=== PATIENT | female | born 1955 | race Two or more races ===

== ENCOUNTER 2019-10-14 19:29 | Emergency (ER) | payer MEDICAID ==
[~2019-10-14] VITALS: Ht 165.1 cm; Wt 65.8 kg
[~2019-10-14 19:29] MED LIST: AMLO5TAB4 PO; ASPI-495 PO; ATOR10TA PO; BENA20TA78 PO; CINA60TA PO; HYDR-4076 PO; LABE100T25 PO; QUET25TA PO; SEVE800T7 PO
--- NOTE | 2019-10-14 20:00 | NUR ---
PATIENT 63 YEAR OLD FEMALE. PATIENT WENT TO THE DENTIST TO GET TOOTH WORK DONE. PATIENT STATE THAT SHE HAS BEEN BLEEDING FROM THE SITE X4 DAYS. PATIENT A/O X4 PATIENT IS AMBULATORY. NO SOB. NO ACUTE RESPIRATROY DISTRESS. BED LOCK AND LOWEST POSITION 2 X RAILS UP FAMILY AT BED SIDE.
--- NOTE | 2019-10-14 20:00 | NUR ---
DR GROSS SAW PATIENT.
[2019-10-14 20:53] LABS: BASOPHILS # (AUTO) 0.1 /CMM (0.0-0.2); BASOPHILS % (AUTO) 1.5 % (0.0-2.0); EOSINOPHILS % (AUTO) 3.8 % (0.0-6.0); HEMATOCRIT 30 % (33-45); HEMOGLOBIN 9.9 g/dL (11.5-14.8); LYMPHOCYTES # (AUTO) 1.5 /CMM (0.8-4.8); LYMPHOCYTES % (AUTO) 17.1 % (20.0-44.0); MEAN CORPUSCULAR HGB CONC 33 g/dl (31.0-36.0); MEAN CORPUSCULAR VOLUME 91 fL (82-100); MONOCYTES # (AUTO) 0.5 /CMM (0.1-1.30); MONOCYTES % (AUTO) 5.8 % (2.0-12.0); NEUTROPHILS # (AUTO) 6.5 /CMM (1.8-8.9); NEUTROPHILS % (AUTO) 71.8 % (43.0-81.0); PLATELET COUNT (AUTO) 207 /CMM (150-450); RED BLOOD CELL COUNT(AUTO) 3.32 MIL/uL (4.0-5.2)
[2019-10-14 21:00] LABS: POTASSIUM 4.1 mmol/L (3.5-5.1)
[2019-10-14 21:08] LABS: CREATININE 8.5 mg/dL (0.6-1.3)
[2019-10-14] MEDS ORDERED: TRANEXAMIC ACID 1,000 MG/10 ML VIAL ONE (21:20)
[2019-10-14] MEDS ORDERED: TRANEXAMIC ACID 1,000 MG/10 ML VIAL IR ONE (21:30)
[2019-10-14] MEDS ORDERED: SILVER NITRATE APPLICATOR 1 EA BOX ONE (21:33)
--- NOTE | 2019-10-14 22:37 | NUR ---
PT REC'D EXTRA GAUZE TO USE AT HOME. Patient discharged to home in stable condition. Written and verbal after care instructions given. Patient AND HER GRAND DAUGHTER verbalizes understanding of instruction. PT'S VSS. PT AMBULATED OUT WITH A STEADY GAIT.
[2019-10-14 22:38] VITALS: BP 125/72
--- NOTE | 2019-10-14 22:38 | NUR ---
PT HAS HD IN THE AM. PT WILL F/U WITH DENTIST AFTERWARDS.
[2019-12-29] MEDS ORDERED: ASPI-1152 PO (07:09)
== END 2019-10-14 22:39 | disposition home or self-care (01) ==
LOC: ER 19:37 → MERGE 19:37 → ER 22:39
DX: K91.841 Postprocedural hemorrhage of a digestive system organ or structure following other procedure (principal); I12.0 Hypertensive chronic kidney disease with stage 5 chronic kidney disease or end stage renal disease; N18.6 End stage renal disease; D63.1 Anemia in chronic kidney disease; Z99.2 Dependence on renal dialysis; Z60.2 Problems related to living alone
CPT/HCPCS: 36415; 80048-TC; 85025-TC; 85730-TC

== ENCOUNTER 2019-12-29 04:58 | Inpatient (IN) | payer MEDICAID ==
[~2019-12-29] VITALS: Ht 154.9 cm; Wt 52.6 kg
--- NOTE | 2019-12-29 05:09 | NUR ---
DION [id number]
--- NOTE | 2019-12-29 05:15 | NUR ---
PT IS PRESENTED TO THE ER FOR C/O WORSENING SOB X 1 DAY. SATTING 95% ON R/A. DENIED COUGH. A, OX3, AMBULATORY TO BED 7, W/ PMH OF ESRD ON HD 3 TIMES A WK ON S. HAD HER LAST HD ON SATURDAY AND DUE TODAY. LFA HD SHUNT INTACT. PT WAS PLACED ON A MONITOR , PT WAS PLACED ON O2 AT 2LPM VIA NC AND O2 SAT INCREASED TO 100%. DENIED CP. + C/O GENERALIZED BODY ACHE. WILL CONT TO NABIL ,
[2019-12-29 05:22] LABS: BASOPHILS # (AUTO) 0.1 /CMM (0.0-0.2); BASOPHILS % (AUTO) 1.3 % (0.0-2.0); EOSINOPHILS % (AUTO) 1.8 % (0.0-6.0); HEMATOCRIT 28 % (33-45); HEMOGLOBIN 9.1 g/dL (11.5-14.8); LYMPHOCYTES # (AUTO) 1.2 /CMM (0.8-4.8); LYMPHOCYTES % (AUTO) 11.4 % (20.0-44.0); MEAN CORPUSCULAR HGB CONC 33 g/dl (31.0-36.0); MEAN CORPUSCULAR VOLUME 88 fL (82-100); MONOCYTES # (AUTO) 0.4 /CMM (0.1-1.30); MONOCYTES % (AUTO) 4.3 % (2.0-12.0); NEUTROPHILS # (AUTO) 8.5 /CMM (1.8-8.9); NEUTROPHILS % (AUTO) 81.2 % (43.0-81.0); PLATELET COUNT (AUTO) 166 /CMM (150-450); RED BLOOD CELL COUNT(AUTO) 3.14 MIL/uL (4.0-5.2); WHITE BLOOD COUNT (AUTO) 10.5 K/uL (4.3-11.0)
[2019-12-29 05:29] LABS: CALCIUM, SERUM 9.3 mg/dL (8.5-10.1)
[2019-12-29 05:37] LABS: D-DIMER 1.79 mg/L(FEU (0.17-0.50)
[2019-12-29] MEDS ORDERED: hydrALAZINE HCL IV 20 MG VIAL ONE ×2 (05:56→06:36)
[2019-12-29] MEDS ORDERED: hydrALAZINE HCL IV 20 MG VIAL IV ONE (06:00)
--- NOTE | 2019-12-29 06:23 | NUR ---
TELE BED 117-2
[2019-12-29] MEDS ORDERED: PIPERACILLIN /TAZOBACTAM 3.375 G VIAL IV ONE (06:25)
[2019-12-29] MEDS ORDERED: PIPERACILLIN /TAZOBACTAM 3.375 G in IV D5W 50 ML IV ONE (06:30)
[2019-12-29] MEDS ORDERED: VANCOMYCIN 1 GM in IV D5W 250 ML IV ONE (06:30)
[2019-12-29] MEDS ORDERED: MORPHINE SULFATE INJ 2 MG/ML DISP.SYRIN IV PRN (06:30)
[2019-12-29] MEDS ORDERED: HYDROCODONE/APAP 5/325MG TABLET PO PRN (06:30)
[2019-12-29] MEDS ORDERED: ZOLPIDEM TARTRATE 5 MG TABLET PO PRN (06:30)
[2019-12-29] MEDS ORDERED: hydrALAZINE HCL IV 20 MG VIAL IV PRN (06:30)
--- NOTE | 2019-12-29 06:41 | NUR ---
BLOOD CULTURES AND HAYS VIRUS SWAB COLLECTED AND SENT TO THE LAB.
[2019-12-29] MEDS ORDERED: VANCOMYCIN 1 GM VIAL ONE (06:51)
[2019-12-29] MEDS ORDERED: AMLO5TAB9 PO (07:09)
[2019-12-29] MEDS ORDERED: OMEP20TA5 PO (07:09)
[2019-12-29] MEDS ORDERED: CINA90TA4 PO (07:09)
[2019-12-29] MEDS ORDERED: FOLI0.8C PO (07:09)
[2019-12-29] MEDS ORDERED: SEVE800T28 PO (07:09)
[2019-12-29] MEDS ORDERED: LABE200T5 PO (07:09)
[2019-12-29] MEDS ORDERED: ASPI-1420 PO (07:09)
[2019-12-29] MEDS ORDERED: FEE PK DOSING 1 MIN EA MC ONE (07:25)
--- NOTE | 2019-12-29 07:57 | NUR ---
REPORT GIVEN TO SUNDAY VASQUEZ
--- NOTE | 2019-12-29 08:24 | NUR ---
PATIENT TRANSFERRED TO ROOM 117-2 VIA ACLS PROTOCOL. NO DISTRESS NOTED. ENDORSED TO SUNDAY VASQUEZ.
--- NOTE | 2019-12-29 08:25 | NUR ---
CONTACT LENS INSPECTOR NOTES RECEIVED PT FROM E.R. STAFF, AWAKE, ALERT AND ORIENTED, DENIES PAIN, NO SHORTNESS OF BREATH AT THIS TIME, NO COMPLAINT OF PAIN, ASSISTED TO BED, MADE COMFORTABLE, ROOM SET UP ORIENTATION PROVIDED TO PT, VERBALIZED UNDERSTANDING, CALL LIGHT WITHIN REACH, ADMISSION ORDERS RECEIVED FROM DR. GALVAN, PT SEEN AND EXAMINED BY DR. CULVER, NEEDS ATTENDED.
[2019-12-29 08:30] VITALS: BP 161/73
[2019-12-29 08:46] LABS: ALBUMIN 3.6 g/dL (3.4-5.0); BILIRUBIN,DIRECT 0.2 mg/dL (0.0-0.2); BILIRUBIN,TOTAL 0.6 mg/dL (0.2-1.0); MAGNESIUM 2.1 mg/dL (1.8-2.4); PHOSPHORUS 3.5 mg/dL (2.5-4.9); TOTAL PROTEIN, SERUM 7.2 g/dL (6.4-8.2)
[2019-12-29 08:54] LABS: C-REACTIVE PROTEIN 0.2 mg/dL (0.0-0.9); THYROID STIMULATING HORMONE 2.399 uIU/mL (0.358-3.74)
[2019-12-29] MEDS: HEPARIN SODIUM, PORCINE 5000 UNITS/1 ML VIAL SQ SCH ×2 (09:28→20:35)
[2019-12-29] MEDS ORDERED: PIPERACILLIN /TAZOBACTAM 3.375 G in IV D5W 50 ML IV SCH (12:00)
[2019-12-29 12:07] LABS: IRON, SERUM 78 ug/dl (50-175); TOTAL IRON BINDING CAPACITY 200 ug/dl (250-450)
--- NOTE | 2019-12-29 13:00 | NUR ---
TAX ACCOUNTING MANAGER NOTES PT IN BED, AWAKE, ALERT AND ORIENTED, COMPLETED DIALYSIS, TOLERATED WELL, STATED THAT SHE FEELS BETTER AFTER HD, NO SOB NOTED, PT DOES NOT WANT ANY SKIN CHECK AT THIS TIME SHE IS RESTING BUT SAYS SHE DOES NOT HAVE ANY SKIN ISSUES, NEEDS ATTENDED, CALL LIGHT WITHIN REACH.
[2019-12-29] MEDS: hydrALAZINE HCL IV 20 MG VIAL IV PRN ×3 (13:37→21:02)
[2019-12-29] MEDS: PIPERACILLIN /TAZOBACTAM 2.25 G in IV D5W 50 ML IV SCH ×2 (13:37→20:33)
[2019-12-29] MEDS: ACETAMINOPHEN 325 MG TABLET PO PRN (16:57)
[2019-12-29 17:19] VITALS: BP 179/82
[2019-12-29 18:00] VITALS: BP 157/71
--- NOTE | 2019-12-29 18:30 | NUR ---
BRIDGE CONTRACTOR NOTES PT IN BED, AWAKE, ALERT AND ORIENTED, NO COMPLAINT AT HIS TIME, BREAHING PATTERN NORMAL, PM MEDS GIVEN ORDERED, CALL LIGHT WITHIN REACH, ALL NEEDS ATTENDED.
[2019-12-29] MEDS: VANCOMYCIN 500 MG in IV D5W 100 ML IV PRN (18:49)
--- NOTE | 2019-12-29 19:40 | NUR ---
RN NOTE PT IN BED, A/O X 4 ON MONITOR CURRENTLY SR, NO COMPLAINT OF PAIN AT THIS TIME. PT IN NO RESPITORY DISTRESS, ON O2 2L/MIN VIA NC. IV SITE TO RAC PATENT AND INTACT FLUSHING WELL. BED IN LOWEST POSITION, SAFETY MEASURES IN PLACE, CALL LIGHT WITHIN REACH WILL CONT. TO MONITOR PT.
[2019-12-29 20:00] VITALS: BP 184/93
--- NOTE | 2019-12-29 22:00 | NUR ---
RN NOTE RECHECKED BP 154/89 PULSE 74.
[2019-12-30] VITALS (8 sets, daily range): BP systolic 137–200; BP diastolic 70–100
[2019-12-30] MEDS: ACETAMINOPHEN 325 MG TABLET PO PRN ×2 (00:17→05:02)
--- NOTE | 2019-12-30 00:17 | NUR ---
RN NOTE PT REQUESTING TYLENOL C/O HEAD PAIN 10/19. TYLENOL GIVEN TO PT.
[2019-12-30] MEDS: hydrALAZINE HCL IV 20 MG VIAL IV PRN ×2 (04:12→18:40)
[2019-12-30] MEDS: PIPERACILLIN /TAZOBACTAM 2.25 G in IV D5W 50 ML IV SCH ×3 (04:47→21:13)
--- NOTE | 2019-12-30 04:58 | NUR ---
RN NOTE RECHECK BP 159/85 PULSE 79. PT REQUESTING TYLENOL C/O PAIN 09/21.
[2019-12-30 06:29] LABS: BASOPHILS # (AUTO) 0.1 /CMM (0.0-0.2); BASOPHILS % (AUTO) 1.5 % (0.0-2.0); EOSINOPHILS % (AUTO) 2.5 % (0.0-6.0); HEMATOCRIT 27 % (33-45); LYMPHOCYTES # (AUTO) 1.5 /CMM (0.8-4.8); LYMPHOCYTES % (AUTO) 15.9 % (20.0-44.0); MEAN CORPUSCULAR HGB CONC 34 g/dl (31.0-36.0); MEAN CORPUSCULAR VOLUME 88 fL (82-100); MONOCYTES # (AUTO) 0.8 /CMM (0.1-1.30); MONOCYTES % (AUTO) 8.7 % (2.0-12.0); NEUTROPHILS # (AUTO) 6.6 /CMM (1.8-8.9); NEUTROPHILS % (AUTO) 71.4 % (43.0-81.0); PLATELET COUNT (AUTO) 169 /CMM (150-450); RED BLOOD CELL COUNT(AUTO) 3.02 MIL/uL (4.0-5.2); WHITE BLOOD COUNT (AUTO) 9.3 K/uL (4.3-11.0)
[2019-12-30 06:39] LABS: CALCIUM, SERUM 9.4 mg/dL (8.5-10.1); CREATININE 8.3 mg/dL (0.6-1.3); POTASSIUM 3.9 mmol/L (3.5-5.1)
--- NOTE | 2019-12-30 06:56 | NUR ---
RN CLOSING NOTE PT IN BED, ASLEEP, CURRENTLY SR, PT IN NO RESPIRATORY DISTRESS, ON O2 2L/MIN VIA NC TOLERATED WELL. IV SITE TO RAC PATENT AND INTACT FLUSHING WELL. BED IN LOWEST POSITION, SAFETY MEASURES IN PLACE, CALL LIGHT WITHIN REACH, ENDORSED COVID NEGATIVE RESULTS. ENDORSED FOR JOLLY
[2019-12-30] MEDS: HEPARIN SODIUM, PORCINE 5000 UNITS/1 ML VIAL SQ SCH ×2 (09:00→20:10)
[2019-12-30] MEDS ORDERED: hydrALAZINE HCL 50 MG TABLET PO SCH (09:30)
[2019-12-30] MEDS ORDERED: ISOSORBIDE DINITRATE (20MG) 20 MG TABLET PO SCH (09:30)
[2019-12-30] MEDS: FOLIC ACID 1 MG TABLET PO SCH (09:30)
[2019-12-30] MEDS: PANTOPRAZOLE 40 MG TABLET.DR PO SCH (09:30)
[2019-12-30] MEDS: AMLODIPINE BESYLATE 5 MG TABLET PO SCH (09:30)
[2019-12-30] MEDS: CINACALCET HCL 30 MG TABLET PO SCH (10:00)
[2019-12-30] MEDS: LABETALOL HCL (100MG) 100 MG TABLET PO SCH ×3 (10:00→18:42)
[2019-12-30] MEDS: SEVELAMER CARBONATE 800 MG TABLET PO SCH ×2 (13:16→17:37)
--- NOTE | 2019-12-30 13:31 | NUR ---
NURSING SUP/FAIZAN MADE AWARE PATIENT HAS ORDER TO TRANSFER TO [facility] FOR BED.
--- NOTE | 2019-12-30 14:30 | NUR ---
RN NOTE Received patient from [facility]IO. Bedside report. Patient is A/O x4, showing no signs of acute distress or SOB, stable on RA. Patient is ambulatory with BRP. BP 160/70, HR 83, RR 18, O2 98% on RA. IV line is clean and intact. Bed is in lowest position, side rails x3 in upright position, call light is within reach and patient is aware of how to call for assistance when needed. Will continue with plan of care.
--- NOTE | 2019-12-30 17:38 | NUR ---
RN NOTE Patient is going to receive dialysis. Per manager loan to hold Labetalol.
--- NOTE | 2019-12-30 18:40 | NUR ---
RN NOTE Patient was receiving dialysis and hedis manager Frank stated that patient's BP is not resolving, BP is 200/100 HR 76. Patient remains alert, with no signs of acute distress, resting in bed. IV Hydralazine given 10mg and scheduled Labetalol given. notified. Will continue to monitor.
--- NOTE | 2019-12-30 19:30 | NUR ---
RN CLOSING NOTE Patient is resting in bed, A/O x4 showing no signs of acute distress or SOB, saturating >95% on 2L NC, currently receiving hemodialysis. BP 184/90 HR 73. All patient needs met, all due medications given, patient kept clean and dry throughout shift. Bed is in lowest position, side rails x3 in upright position, call light is within reach and patient is aware of how to call for assistance when needed. Bedside report given to police shift commander.
--- NOTE | 2019-12-30 19:31 | NUR ---
RN OPENING NOTE PATIENT IN BED RECIEVING HD IN NO SIGNS OF ACUTE DISTRESS. C/O NAUSEABED IN LOW LOCKED POSITIONSRX3 HD NURSE WILIAM AT THE BEDSIDE. PER REPORT BP HAS BEEN HIGH THROUGHOUT ADMISSION. CALL LIGHT WITHIN REACH. WILL CONT TO MONITOR. Addendum: 12/31/19 at 0028 by JULIO CHOU RN REPORT RECIEVED FROM TANNER VASQUEZ.
--- NOTE | 2019-12-30 20:16 | NUR ---
HD COMPLETED PER WILIAM EVENT LIGHTING SPECIALIST. 2 LITERS TAKEN OFF SBP STILL HIGH IN 180'S PATIENT C/O NAUSEA.
[2019-12-30] MEDS: ONDANSETRON HCL/PF 4 MG/2 ML VIAL IVP PRN (20:20)
[2019-12-30] MEDS ORDERED: Z GUARD REMEDY 4 OZ OINT TP SCH (21:00)
[2019-12-30] MEDS ORDERED: TRIAMCINOLONE ACETONIDE 0.1% CR 15 GM TUBE TP SCH (21:00)
[2019-12-30] MEDS ORDERED: NYSTATIN CREAM 15 GM TUBE TP SCH (21:00)
[2019-12-30] MEDS ORDERED: HYDROGEL DRESSING 90 GM TUBE TP SCH ×2 (21:00)
--- NOTE | 2019-12-30 21:01 | NUR ---
PHARMACY CALLED AND STATE HOLD VANCOMYCIN TODAY PATIENT VANCO TROUGH WAS 22. REQUEST NEW TROUGH BE ORDERED NEXT TIME PATIENT HAS DIALYSIS.
[2019-12-31] VITALS: BP 167/78
[2019-12-31] MEDS: VANCOMYCIN 500 MG in IV D5W 100 ML IV PRN (00:20)
--- NOTE | 2019-12-31 00:30 | NUR ---
HYDRALAZINE ADMINISTED PATIENT BP STILL HIGH AT 167/78 HR 76 WILL CONT TO MONITOR.
[2019-12-31] MEDS: hydrALAZINE HCL IV 20 MG VIAL IV PRN ×2 (00:32→09:51)
[2019-12-31] MEDS: ACETAMINOPHEN 325 MG TABLET PO PRN (00:35)
--- NOTE | 2019-12-31 00:35 | NUR ---
TYELENOL ADMINISTERD FOR ARCHULETA PER PATIENT REQUEST RATED 3/10.
[2019-12-31] MEDS: PIPERACILLIN /TAZOBACTAM 2.25 G in IV D5W 50 ML IV SCH ×2 (05:20→13:50)
[2019-12-31 05:27] VITALS: BP 155/71
[2019-12-31 06:26] LABS: BASOPHILS # (AUTO) 0.2 /CMM (0.0-0.2); EOSINOPHILS % (AUTO) 4.1 % (0.0-6.0); HEMATOCRIT 27 % (33-45); HEMOGLOBIN 8.9 g/dL (11.5-14.8); LYMPHOCYTES # (AUTO) 2.2 /CMM (0.8-4.8); LYMPHOCYTES % (AUTO) 23.7 % (20.0-44.0); MEAN CORPUSCULAR HGB CONC 33 g/dl (31.0-36.0); MEAN CORPUSCULAR VOLUME 88 fL (82-100); MONOCYTES # (AUTO) 0.8 /CMM (0.1-1.30); MONOCYTES % (AUTO) 8.9 % (2.0-12.0); NEUTROPHILS # (AUTO) 5.8 /CMM (1.8-8.9); NEUTROPHILS % (AUTO) 61.3 % (43.0-81.0); PLATELET COUNT (AUTO) 185 /CMM (150-450); RED BLOOD CELL COUNT(AUTO) 3.06 MIL/uL (4.0-5.2); WHITE BLOOD COUNT (AUTO) 9.4 K/uL (4.3-11.0)
[2019-12-31 06:28] LABS: CALCIUM, SERUM 9.4 mg/dL (8.5-10.1); CREATININE 6.4 mg/dL (0.6-1.3); POTASSIUM 3.9 mmol/L (3.5-5.1)
--- NOTE | 2019-12-31 06:40 | NUR ---
RN PM CLOSING NOTE PATIENT IN BED SEEN WITH EYES CLOSED. NO SIGNS OF ACUTE DISTRESS. BED IN LOW LOCKED POSITION SRX3. BP CHECKED THIS MORNING AND IS SBP IS LESS THEN 160. BP HAS BEEN HIGH THROUGHOUT ADMISSION. CALL LIGHT WITHIN REACH.
--- NOTE | 2019-12-31 07:15 | NUR ---
MS RN NOTES RECEIVED PATIENT AMBULATING IN ROOM. ALERT AND ORIENTED X4. NO SOB. DENIES ANY C/O PAIN NOR DISCOMFORT. RIGHT AC # 18 SL INTACT AND PATENT. LEFT FOREARM AV FISTULA WITH + BRUIT/THRILL. AMBULATORY WITH STEADY GAIT. BED IN LOWEST POSITION, LOCKED. CALL LIGHT WITHIN REACH. ABLE TO VERBALIZE NEEDS.
[2019-12-31] MEDS: PANTOPRAZOLE 40 MG TABLET.DR PO SCH (07:47)
[2019-12-31 08:00] VITALS: BP 175/83
[2019-12-31] MEDS ORDERED: ASPIRIN EC 81 MG TABLET.DR PO SCH (09:00)
[2019-12-31] MEDS: FOLIC ACID 1 MG TABLET PO SCH (09:19)
[2019-12-31] MEDS: SEVELAMER CARBONATE 800 MG TABLET PO SCH ×3 (09:19→17:11)
[2019-12-31] MEDS: CINACALCET HCL 30 MG TABLET PO SCH (09:19)
[2019-12-31] MEDS: HEPARIN SODIUM, PORCINE 5000 UNITS/1 ML VIAL SQ SCH (09:21)
[2019-12-31] MEDS: LABETALOL HCL (100MG) 100 MG TABLET PO SCH ×2 (09:29→17:11)
[2019-12-31] MEDS: AMLODIPINE BESYLATE 5 MG TABLET PO SCH (09:30)
[2019-12-31] MEDS: ONDANSETRON HCL/PF 4 MG/2 ML VIAL IVP PRN (09:49)
[2019-12-31] MEDS: hydrALAZINE HCL 50 MG TABLET PO SCH ×3 (10:19→17:12)
[2019-12-31] MEDS: ISOSORBIDE DINITRATE (20MG) 20 MG TABLET PO SCH ×2 (10:19→17:11)
[2019-12-31 17:12] VITALS: BP 139/77
--- NOTE | 2019-12-31 17:45 | NUR ---
MS RN NOTES PATIENT FOR DISCHARGE. DISCHARGE INSTRUCTIONS, EDUCATION AND PACKET GIVEN TO PATIENT AND VERBALIZES UNDERSTANDING. ALERT AND ORIENTED X4. NO SOB. DENIES ANY C/O PAIN NOR DISCOMFORT. IV ACCESS CATHETER REMOVED WITH CATHETER TIP INTACT WITH GAUZE DRESSING IN PLACE. LEFT FOREARM AV FISTULA WITH + BRUIT/THRILL. AMBULATORY WITH STEADY GAIT. ALL BELONGINGS ACCOUNTED FOR. PATIENT PICKED UP BY DAUGHTER VIA PRIVATE VEHICLE AND LEFT IN STABLE CONDITION.
== END 2019-12-31 17:45 | disposition home or self-care (01) | DRG 199 ==
LOC: ER 05:03 → TELE1 06:23 → MERGE 06:23 → MEDSG1 12-30 09:33 → MED 12-30 14:11
PROVIDERS: ADMIT Nurse Practitioner Acute Care; ATTEND Nurse Practitioner Acute Care
PROC: 5A1D70Z Performance of Urinary Filtration, Intermittent, Less than 6 Hours Per Day (ICD-10-PCS; principal; 2019-12-29)
DX: I16.0 Hypertensive urgency (principal); I50.31 Acute diastolic (congestive) heart failure; N18.6 End stage renal disease; N25.81 Secondary hyperparathyroidism of renal origin; I13.2 Hypertensive heart and chronic kidney disease with heart failure and with stage 5 chronic kidney disease, or end stage renal disease; Z99.2 Dependence on renal dialysis; D63.1 Anemia in chronic kidney disease; K21.9 Gastro-esophageal reflux disease without esophagitis
CPT/HCPCS: 36415; 71045-TC; 80048-TC; 80061-TC; 80076-TC; 80202-TC; 82550-TC; 83540-TC; 83605-TC; 83615-TC; 83735-TC; 83880; 84100-TC; 84443-TC; 84484-TC; 85025-TC; 85378-TC; 85385-TC; 85610-TC; 86140-TC; 86706; 87040-TC; 87081-TC; 87340; 90935-TC; 93307-TC; 97116-TC; 97530-TC; A6248; G0378; J0360; J1644; J2405; J2543; J3370; J7050; J7060; U0003-CS

== ENCOUNTER 2020-07-21 17:19 | Emergency (ER) | payer MEDICAID ==
[~2020-07-21] VITALS: Ht 165.1 cm; Wt 49.9 kg
[~2020-07-21 17:19] MED LIST changes: +AMLO-212 PO; -AMLO5TAB4 PO; +ASPI-1420 PO; -ASPI-495 PO; +CINA90TA4 PO; +FOLI0.8C PO; -LABE100T25 PO; +LABE200T5 PO; +OMEP20TA5 PO; +SEVE800T28 PO
--- NOTE | 2020-07-21 18:02 | NUR ---
FROM HOME C/O NAUSEA AND VOMITING X 1 WEEK, LACK OF APPETITE, TESTED NEGATIVE COVID 1 MONTH AGO, TO ER BED 11, HOOKED TO MONITOR, CHANGED TO HOSP GOWN, WARM BLANKET PROVIDED, PATIENT AAO x 4. DR PANG AT BEDSIDE
--- NOTE | 2020-07-21 19:28 | NUR ---
CALLED REGARDING COVID SWABS
[2020-07-21] MEDS ORDERED: IV NS 0.9% 500 ML IV ONE (19:30)
--- NOTE | 2020-07-21 19:45 | NUR ---
LINE ESTABLISHED RAC 20G, BLOOD COLLECTED, SENT TO LAB.
--- NOTE | 2020-07-21 19:45 | NUR ---
JADEID SWABBED, SENT TO LAB.
[2020-07-21 19:49] LABS: BASOPHILS # (AUTO) 0.2 /CMM (0.0-0.2); BASOPHILS % (AUTO) 3.5 % (0.0-2.0); EOSINOPHILS % (AUTO) 0.5 % (0.0-6.0); HEMATOCRIT 33 % (33-45); HEMOGLOBIN 10.9 g/dL (11.5-14.8); LYMPHOCYTES # (AUTO) 0.6 /CMM (0.8-4.8); LYMPHOCYTES % (AUTO) 11.1 % (20.0-44.0); MEAN CORPUSCULAR HGB CONC 33 g/dl (31.0-36.0); MEAN CORPUSCULAR VOLUME 94 fL (82-100); MONOCYTES # (AUTO) 0.7 /CMM (0.1-1.30); MONOCYTES % (AUTO) 11.5 % (2.0-12.0); NEUTROPHILS # (AUTO) 4.3 /CMM (1.8-8.9); NEUTROPHILS % (AUTO) 73.4 % (43.0-81.0); PLATELET COUNT (AUTO) 216 /CMM (150-450); RED BLOOD CELL COUNT(AUTO) 3.48 MIL/uL (4.0-5.2); WHITE BLOOD COUNT (AUTO) 5.8 K/uL (4.3-11.0)
[2020-07-21 19:59] LABS: CALCIUM, SERUM 10.1 mg/dL (8.5-10.1); CREATININE 4.9 mg/dL (0.6-1.3); POTASSIUM 4.2 mmol/L (3.5-5.1)
[2020-07-21 20:16] LABS: ALBUMIN 3.1 g/dL (3.4-5.0); BILIRUBIN,TOTAL 0.5 mg/dL (0.2-1.0); TOTAL PROTEIN, SERUM 8.1 g/dL (6.4-8.2)
--- NOTE | 2020-07-21 20:19 | NUR ---
DAUGHTER EASTON FOR UPDATES,
--- NOTE | 2020-07-21 20:30 | NUR ---
Call from Lab, Rapid covid positive
--- NOTE | 2020-07-21 21:21 | NUR ---
RESTING COMFORTABLY. VSS.
[2020-07-21 21:27] LABS: C-REACTIVE PROTEIN 11.4 mg/dL (0.0-0.9)
--- NOTE | 2020-07-21 21:36 | NUR ---
SPOKE TO MD REGARDING PT BEING HYPERTENSIVE. WILL PLACE ORDERS.
[2020-07-21] MEDS ORDERED: LABETALOL HCL (100MG) 100 MG TABLET PO ONE (22:00)
[2020-07-21] MEDS ORDERED: BENAZEPRIL HCL 10 MG TABLET PO ONE (22:00)
[2020-07-21] MEDS ORDERED: BENAZEPRIL HCL 10 MG TABLET ONE (22:10)
[2020-07-21] MEDS ORDERED: LABETALOL HCL (100MG) 100 MG TABLET ONE (22:11)
--- NOTE | 2020-07-21 22:29 | NUR ---
Patient discharged to home in stable condition. Written and verbal after care instructions given. Patient verbalizes understanding of instruction.IV removed. Catheter intact and site benign. Pressure and 4x4 applied to site. No bleeding noted.
[2020-07-21 22:30] VITALS: BP 196/92
== END 2020-07-21 22:30 | disposition home or self-care (01) ==
LOC: ER 17:21
DX: U07.1 COVID-19 (principal); I12.0 Hypertensive chronic kidney disease with stage 5 chronic kidney disease or end stage renal disease; N18.6 End stage renal disease; Z99.2 Dependence on renal dialysis; K21.9 Gastro-esophageal reflux disease without esophagitis; D64.9 Anemia, unspecified; Z79.82 Long term (current) use of aspirin; Z79.899 Other long term (current) drug therapy
CPT/HCPCS: 36415; 71045; 80053; 82550; 82728; 83605; 83615; 84145; 85025; 85730; 86140; 87040 ×2; 87081; 87426; 93005; 99285; C9803; J7040; U0003

== ENCOUNTER 2020-09-20 00:04 | Emergency (ER) | payer MEDICAID ==
[~2020-09-20] VITALS: Ht 154.9 cm; Wt 54.9 kg
[~2020-09-20 00:04] MED LIST changes: -CINA60TA PO; -HYDR-4076 PO; -QUET25TA PO; -SEVE800T7 PO
--- NOTE | 2020-09-20 00:10 | NUR ---
PT BIBSELF C/O NOSEBLEED SINCE 1999. PT AAOX4 BREATHING EVENLY AND UNLABORED. PT SKIN IS WARM, DRY, AND INTACT. PT ATTACHED TO MONITOR AND POX. GIVEN BLANKET AND CALL LIGHT WITHIN REACH. WILL CONTINUE TO MONITOR.
[2020-09-20] MEDS ORDERED: ONDANSETRON HCL/PF 4 MG/2 ML VIAL IV ONE (01:00)
--- NOTE | 2020-09-20 01:00 | NUR ---
blood sample obtained and sent to lab
--- NOTE | 2020-09-20 01:00 | NUR ---
pt began vomitting up blood with clots. notifed. zofran ordered. 20g rt ac iv initiated. orders carried out
[2020-09-20] MEDS ORDERED: ONDANSETRON HCL/PF 4 MG/2 ML VIAL ONE (01:04)
[2020-09-20 01:19] LABS: BASOPHILS # (AUTO) 0.3 /CMM (0.0-0.2); BASOPHILS % (AUTO) 2.6 % (0.0-2.0); EOSINOPHILS % (AUTO) 4.2 % (0.0-6.0); HEMATOCRIT 27 % (33-45); HEMOGLOBIN 8.6 g/dL (11.5-14.8); LYMPHOCYTES # (AUTO) 1.3 /CMM (0.8-4.8); LYMPHOCYTES % (AUTO) 13.6 % (20.0-44.0); MEAN CORPUSCULAR HGB CONC 32 g/dl (31.0-36.0); MEAN CORPUSCULAR VOLUME 92 fL (82-100); MONOCYTES # (AUTO) 0.7 /CMM (0.1-1.30); MONOCYTES % (AUTO) 6.9 % (2.0-12.0); NEUTROPHILS # (AUTO) 7.2 /CMM (1.8-8.9); NEUTROPHILS % (AUTO) 72.7 % (43.0-81.0); PLATELET COUNT (AUTO) 212 /CMM (150-450); WHITE BLOOD COUNT (AUTO) 9.9 K/uL (4.3-11.0)
[2020-09-20] MEDS ORDERED: TRANEXAMIC ACID 1,000 MG/10 ML VIAL ONE (01:21)
[2020-09-20] MEDS ORDERED: TRANEXAMIC ACID 1,000 MG/10 ML VIAL IR ONE (01:30)
--- NOTE | 2020-09-20 02:24 | NUR ---
at bedside placing rhinorocket
[2020-09-20] MEDS ORDERED: AMOX-430 PO (02:27)
--- NOTE | 2020-09-20 03:00 | NUR ---
at bedside placing second rhinorocket in rt nostril
--- NOTE | 2020-09-20 03:40 | NUR ---
[place] [facility] [place]NA[place] FOR ENT SERVICES AT THIS TIME
--- NOTE | 2020-09-20 03:44 | NUR ---
SPOKE WITH JIMMY FROM [facility], NO BEDS AVAILABLE AT THIS TIME
--- NOTE | 2020-09-20 03:46 | NUR ---
SPOKE WITH TJ FROM [facility]. NO BEDS AVAILABLE AT THIS TIME
--- NOTE | 2020-09-20 03:47 | NUR ---
spoke to daughter and informed her of the transfer that we will be setting up for the pt to see an ENT
--- NOTE | 2020-09-20 03:48 | NUR ---
SPOKE WITH MYCHAL FROM [facility]. ALL SURROUNDING STRONG FACILITIES AT FULL CAPACITY AT THIS TIME
--- NOTE | 2020-09-20 03:51 | NUR ---
SPOKE WITH JACKIE FROM [facility]. NO ENT SERVICES AVAILABLE
--- NOTE | 2020-09-20 03:52 | NUR ---
SPOKE WITH STEFANIA FROM [facility], NO ENT SERVICES
--- NOTE | 2020-09-20 03:52 | NUR ---
called lab for covid swab
--- NOTE | 2020-09-20 03:57 | NUR ---
SPOKE WITH DASH FROM [facility], ALL FACILITIES AT CAPACITY AT THIS TIME
[2020-09-20] MEDS ORDERED: AMOX/CLAVULANATE 875 MG TABLET PO ONE (04:00)
--- NOTE | 2020-09-20 04:07 | NUR ---
SPOKE WITH KEITH FROM [facility], DR. HODGES NOW SPEAKING WITH [facility]AR[facility] MD REGARDING POSSIBLE TRANSFER AT THIS TIME.
[2020-09-20] MEDS ORDERED: AMOX/CLAVULANATE 875 MG TABLET ONE (04:15)
--- NOTE | 2020-09-20 04:23 | NUR ---
SPOKE WITH BRETT FROM [facility], FULL CAPACITY AT THIS TIME
[2020-09-20 04:24] LABS: CALCIUM, SERUM 9.7 mg/dL (8.5-10.1); POTASSIUM 5.4 mmol/L (3.5-5.1)
[2020-09-20 04:25] LABS: CREATININE 8.1 mg/dL (0.6-1.3)
--- NOTE | 2020-09-20 04:28 | NUR ---
COVID SWAB COLLECTED AMD SENT TO THE LAB
--- NOTE | 2020-09-20 04:36 | NUR ---
SPOKE WITH CLEMENT FROM [facility]. NO BEDS AVAILABLE AT THIS TIME
--- NOTE | 2020-09-20 04:44 | NUR ---
PT ACCEPTED TO [facility] MD: DR. TOUSSAINT NUMBER FOR REPORT: [phone]
--- NOTE | 2020-09-20 04:56 | NUR ---
called and gave report to CHRISTINA Dale for zuly
--- NOTE | 2020-09-20 04:58 | NUR ---
CALLED [facility] FOR TRANSPORTATION. WILL CALL BACK WITH ETA. RESERVATION #[id number]
--- NOTE | 2020-09-20 06:10 | NUR ---
[facility] [phone]
--- NOTE | 2020-09-20 06:20 | NUR ---
called daughter to notify her of the pt's transfer information. Left a message. awaiting a call back
--- NOTE | 2020-09-20 06:22 | NUR ---
called CHRISTINA Dale to update her on the ETA of the pt.
--- NOTE | 2020-09-20 07:13 | NUR ---
endorsed care to CHRISTINA Case for zuly
--- NOTE | 2020-09-20 07:59 | NUR ---
report given to [facility] crew for JOLLY
[2020-09-20 08:03] VITALS: BP 145/87
--- NOTE | 2020-09-20 08:05 | NUR ---
patient picked up by private ambulance going to [facility] in no distress.
== END 2020-09-20 08:05 | disposition short-term general hospital (02) ==
LOC: ER 00:07
DX: R04.0 Epistaxis (principal); F17.210 Nicotine dependence, cigarettes, uncomplicated; I12.9 Hypertensive chronic kidney disease with stage 1 through stage 4 chronic kidney disease, or unspecified chronic kidney disease; N18.6 End stage renal disease; K21.9 Gastro-esophageal reflux disease without esophagitis; D64.9 Anemia, unspecified; Z99.2 Dependence on renal dialysis; Z79.82 Long term (current) use of aspirin; Z79.899 Other long term (current) drug therapy; Z20.822 Contact with and (suspected) exposure to COVID-19; K92.0 Hematemesis
CPT/HCPCS: 30903; 30905; 36415; 80048; 85025; 85610; 85730; 87426; 96374; 99291; 99406; C9803; J2405

== ENCOUNTER 2025-04-28 13:14 | Emergency (ER) | payer MEDICARE, OTHER ==
[~2025-04-28] VITALS: Ht 157.5 cm; Wt 72.6 kg
[~2025-04-28 13:14] MED LIST changes: +AMOX-430 PO
[2025-04-28] MEDS ORDERED: BENZ-13 PO (14:57)
[2025-04-28 17:12] VITALS: BP 100/66; TEMP 99; O2SAT 99
== END 2025-04-28 17:12 | disposition home or self-care (01) ==
LOC: ER 13:27
DX: J06.9 Acute upper respiratory infection, unspecified (principal); R05.9 Cough, unspecified; R09.81 Nasal congestion; R91.1 Solitary pulmonary nodule; F17.200 Nicotine dependence, unspecified, uncomplicated; K21.9 Gastro-esophageal reflux disease without esophagitis; I10 Essential (primary) hypertension; Z79.82 Long term (current) use of aspirin; Z79.899 Other long term (current) drug therapy; Z94.0 Kidney transplant status; Z87.2 Personal history of diseases of the skin and subcutaneous tissue; Z20.822 Contact with and (suspected) exposure to COVID-19
CPT/HCPCS: 71045-TC